=== PATIENT | female | born 1985 | race Caucasian/White ===

== ENCOUNTER 2016-08-31 17:03 | Emergency (ER) | payer OTHER ==
[~2016-08-31] VITALS: Ht 172.7 cm; Wt 122.7 kg
[2016-08-31 17:05] VITALS: TEMP 98.4
[2016-08-31] MEDS ORDERED: AZO-STANDARD95 MG PO (17:08)
[2016-08-31 18:05] LABS: BASO % 0.4 % (0.0-2.0); EOS # 0.3 (0.0-0.7); EOS % 3.5 % (0-4.0); GRAN % 64.1 % (42.2-75.2); HEMATOCRIT 40.7 % (37.0-47.0); HEMOGLOBIN 14.1 g/dl (12.5-16.0); LYMPH # 2.1 (1.2-3.4); LYMPH % 22.8 % (20.0-51.0); MEAN CELL VOLUME 86 fl (80.0-100.0); MEAN CORPUSCULAR HEMOGLOBIN 30 pg (27.0-31.0); MEAN CORPUSCULAR HGB CONC 35 g/dl (33.0-37.0); MEAN PLATELET VOLUME 9.8 fl (7.4-10.4); MONO # 0.8 (0.1-0.6); PLATELET COUNT 290 K/mm3 (130-400); RED BLOOD COUNT 4.74 M/mm3 (4.10-5.30); REDCELL DISTRIBUTION WIDTH-CV 13.2 % (11.5-14.5); WHITE BLOOD COUNT 9.4 K/mm3 (4.8-10.8)
[2016-08-31 19:38] VITALS: BP 161/83; PULSE 85
== END 2016-08-31 19:38 | disposition home or self-care (01) ==
LOC: COL.ER 17:03
PROVIDERS: Emergency Medicine
DX: S70.12XA Contusion of left thigh, initial encounter (principal); S70.312A Abrasion, left thigh, initial encounter; W55.11XA Bitten by horse, initial encounter; Y92.008 Other place in unspecified non-institutional (private) residence as the place of occurrence of the external cause

== ENCOUNTER → 2017-04-12 | Outpatient (CLI) | payer OTHER ==
[~2017-04-12] MED LIST: AZO-STANDARD95 MG PO
== END ==
LOC: COL.RAD 09:22
DX: N83.8 Other noninflammatory disorders of ovary, fallopian tube and broad ligament (principal); N97.9 Female infertility, unspecified

== ENCOUNTER 2018-05-17 10:06 | Inpatient (IN) | payer OTHER ==
[~2018-05-17] VITALS: Ht 172.7 cm; Wt 133.2 kg
[2018-05-17] VITALS (40 sets, daily range): BP systolic 109–179; BP diastolic 58–101; PULSE 60–96; TEMP 97.6–98.6
--- NOTE | 2018-05-17 11:40 | NUR ---
1140- Patient arrived to labor and delivery unit, after being called in after visit to medicine in [place], [place]. Patient seeing Dr. Pagan. Patient takes labatolol 100mg PO once daily for gestational hypertension. Patinent directly admitted for increased BP's and diagnosed with horseshoe kidney. 1144-EFM applied at this time. Dr. Padgett on unit, orders received to draw labs and CMP and UA.
[2018-05-17 12:17] LABS: COLLECTION METHOD CLEAN CATCH
[2018-05-17 12:23] LABS: MUCOUS Present /lpf; PH 7 (5-8); URINE APPEARANCE Hazy; URINE BACTERIA Rare /hpf; URINE BILIRUBIN Negative (NEGATIVE); URINE BLOOD Negative (NEGATIVE); URINE COLOR Yellow; URINE GLUCOSE Negative (NEGATIVE); URINE KETONE Negative (NEGATIVE); URINE LEUKOCYTE ESTERASE Negative (NEGATIVE); URINE NITRATE Negative (NEGATIVE); URINE PROTEIN(semi-quant) Negative (NEGATIVE); URINE RBC 0-2 /hpf; URINE UROBILINOGEN Negative (NEGATIVE); URINE WBC 0-2 /hpf
[2018-05-17 12:23] LABS: BASO % 0.3 % (0.0-2.0); EOS # 0.2 (0.0-0.7); EOS % 1.5 % (0-4.0); GRAN # 7.4 (1.4-6.5); GRAN % 70.9 % (42.2-75.2); HEMOGLOBIN 12.8 g/dl (12.5-16.0); LYMPH # 1.7 (1.2-3.4); LYMPH % 16.5 % (20.0-51.0); MEAN CELL VOLUME 87 fl (80.0-100.0); MEAN CORPUSCULAR HEMOGLOBIN 29 pg (27.0-31.0); MEAN CORPUSCULAR HGB CONC 34 g/dl (33.0-37.0); MEAN PLATELET VOLUME 9.9 fl (7.4-10.4); MONO % 9.8 % (1.7-9.3); PLATELET COUNT 269 K/mm3 (130-400); RED BLOOD COUNT 4.38 M/mm3 (4.10-5.30)
[2018-05-17 12:30] LABS: ALBUMIN 3.4 gm/dL (3.5-5.0); BILIRUBIN,TOTAL 0.2 mg/dL (0.0-1.0); CALCIUM 9.8 mg/dL (8.4-10.2); CREATININE, serum 0.54 mg/dL (0.52-1.25); POTASSIUM 4.2 mmol/L (3.4-5.0); TOTAL PROTEIN 6.7 gm/dL (6.4-8.2)
[2018-05-17] MEDS ORDERED: PRENATAL 191 TAB PO (12:41)
[2018-05-17] MEDS ORDERED: TRANDATE 100MG100 MG PO (12:41)
--- NOTE | 2018-05-17 15:30 | NUR ---
1530- External ultrasound being adjusted continuously. SVE 1-2/60/-2, attempt to place FSE wo trace heartones more eaisly. Unable to place FSE due to station of baby and little dialation. 1535- Patient placed right lateral with peanut ball inbetween knees. Ultrasound adjusted and tracing well at this time.
--- NOTE | 2018-05-17 18:30 | NUR ---
Report received from Andrew SIMPSON. Pt requesting epidural. JOHN Escalera in and pt aware. 1908: JOHN Escalera at bedside for epidural placement. Pt assisted to EOB and pulse ox applied and tracing well. Procedure and questions answered by Lali. 1921: Test dose administered by JOHN Escalera. See anesthesia records. 1925: Pt assisted to wedge left position per request. Plan of care and safety precautions explained to pt and who verbalize understanding. Call light within reach. Will continue to monitor. 1934: at bedside. SVE unchanged. Orders received to increase pitocin to 30mus/hr. See physican notification. Provider to stay on unit and reviewing FHR strip. 2019: FHR having recurrent late decelerations. Drake inserted without difficulties, pale yellow urine return noted. SVE 2-3/80/-2. Pt repositioned to wedge left position with peanut ball. Dr. Padgett at nurses station and reviewing FHR strip. Update on pt status given. See physican notification. to stay on unit and reviews FHR strip. 2114: at pts bedside and reviews FHR strip. SVE 3/80/-2 per provider. Orders received to keep increasing pitocin. Pitocin increased to 20mus/hr per orders and pt repostioned to [facility]. to remain on unit and reviewing FHR strip. 2154: Pt having recurrent late decelerations. Pt repositioned multiple times. reviews FHR strip and orders received to continue increasing pitocin. leaving unit at this time and states to call with any concerns. See physican notification. 2227: in insulation worker interior surface room and reviewing FHR strip. Provider comes to room and SVE unchanged. Potential explained to pt and and per provider and questions and concerns answered. LR bolus started and oxygen applied via oxymask at 10Ls. Orders received to increase pitocin at this time and pitocin increased to 24mus/hr. to remain on unit and reviews FHR strip. 2337: at bedside. SVE 4/90/-2. Plan of care explained to pt and per provider. Pt repositioned to wedge left position and oxygen remains on. Provider to remain on unit and reviews FHR strip. Call light within reach. Will continue to monitor closely.
[2018-05-18] VITALS (25 sets, daily range): BP systolic 113–155; BP diastolic 56–89; PULSE 57–99; TEMP 97.4–98.4
--- NOTE | 2018-05-18 01:27 | NUR ---
Pt starting to feel more pressure and states her contractions are increasing in pain as well. at bedside and pt pushes button. SVE /0 per provider. 0130: Pt laid flat on back for pericare and changing pads. FHR with recurrent late decelerations noted down to 80bmps. Pericare provided and pt repositioned to wedge right position and high fowlers. Plan of care explained to pt and who verbalize understanding. Call light within reach. Will continue to monitor closely.
--- NOTE | 2018-05-18 02:40 | NUR ---
at bedside. SVE 9/+2. Internal FHR monitor removed durring exam and external monitors reapplied with difficulty tracing FHR. RN remains at bedside adjusting monitors. 0245: SVE per provider C/+2. Instructions on pushing with contractions explained to pt per provider. 0250: remains at bedside and begins pushing with pt. Difficulty tracing FHR. FHR audible decelerations noted. Oxygen applied via oxymask at 10Ls. Pt continues pushing with . 0304: Pt moving vertex well. Pt assisted into footplates and nursery called into room for delivery. Pt continues pushing with . 0314: Spontaneous vaginal delivery of viable male infant by . Infant to mothers chest where dried and stimulated per provider and nursery RN. Cord clamped X2 and cut by FOB. Pitocin stopped per protocol. Care of infant assumed by CALVIN Lewis. 0317: Spontaneous delivery of intact placenta by . Pitocin restarted at 333mus/hr per protocol. Second degree perineal laceration repaired by . Fundal message performed and fundus firm, midline and bleeding minimal. Pericare provided, pads changed, ice pack applied and pt repositioned in bed. Plan of care and safety precautions explained to pt and who verbalize understanding. Call light within reach. See doctor dication and anesthesia records.
--- NOTE | 2018-05-18 05:45 | NUR ---
Pt able to hold legs up bilaterally for 5 seconds and ready to move rooms. Fundus firm, midline and bleeding minimal. Pt assisted to edge of bed. Epidural catheter removed without difficulties, no signs of inflammation or infection noted and bandaid applied. Pt assisted to bathroom, standby assist. Pt able to void. Pericare provided. Mesh panties, pad and ice pack applied. Pt ambulatory to room 214 and oriented to room. Call light within reach.
--- NOTE | 2018-05-18 18:37 | NUR ---
PT DECLINED BEDSIDE REPORT. REPORT RECEIVED FROM JASSON Landrum, OFF GOING RN. CARE TAKEN OVER BY THIS RN.
--- NOTE | 2018-05-18 19:14 | NUR ---
Pt visiting with family. D/c board updated. POC discussed. Bed in low and locked position. Call light and personal belongings in reach. Pain under control. Denies further needs.
[2018-05-19 03:00] VITALS: BP 115/64; PULSE 77; TEMP 97.8
[2018-05-19 07:50] VITALS: BP 147/88; PULSE 75; TEMP 98.2
[2018-05-19] MEDS ORDERED: IBU800 M1 PO (11:47)
== END 2018-05-19 15:30 | disposition home or self-care (01) | DRG 807 ==
LOC: OB 10:06 → LDR 11:29 → OB 05-18 06:23
PROVIDERS: Obstetrics & Gynecology; ADMIT Student in an Organized Health Care Education/Training Program
PROC: 3E033VJ Introduction of Other Hormone into Peripheral Vein, Percutaneous Approach (ICD-10-PCS; 2018-05-17)
PROC: 10907ZC Drainage of Amniotic Fluid, Therapeutic from Products of Conception, Via Natural or Artificial Opening (ICD-10-PCS; 2018-05-17)
PROC: 10E0XZZ Delivery of Products of Conception, External Approach (ICD-10-PCS; principal; 2018-05-18)
PROC: 0KQM0ZZ Repair Perineum Muscle, Open Approach (ICD-10-PCS; 2018-05-18)
DX: O13.4 Gestational [pregnancy-induced] hypertension without significant proteinuria, complicating childbirth (principal); Z37.0 Single live birth; Z3A.37 37 weeks gestation of pregnancy; O69.81X0 Labor and delivery complicated by cord around neck, without compression, not applicable or unspecified; O70.1 Second degree perineal laceration during delivery; O99.284 Endocrine, nutritional and metabolic diseases complicating childbirth; E28.2 Polycystic ovarian syndrome; O99.214 Obesity complicating childbirth; E03.9 Hypothyroidism, unspecified
CPT/HCPCS: J1200; J2590; J7120

== ENCOUNTER → 2018-05-20 | Outpatient (CLI) | payer OTHER ==
[~2018-05-20] MED LIST changes: +IBU800 M1 PO; +PRENATAL 191 TAB PO; +TRANDATE 100MG100 MG PO
--- NOTE | 2018-05-20 17:28 | NUR ---
Pt, Kandi Maza, presents for outpatient consult with 2 day old baby boy, Manuel Maza and her spouse Norbert Maza. Dr. Espinoza referred this family for consult after discharge from the hospital yesterday with concerns about jaundice and difficulty. Manuel had a repeat bilirubin test prior to this consult. Manuel was born on [birth year] by to this G1, P1 mother and BW was 6# 8.9oz (2975 gms). They report nursing with the nipple shield for inverted nipples which continues to be the mechanism for latching today. Pt reports Manuel has not eaten since 0400 today; they tried feeding before their trip into the hospital but he would not wake. He had several reported feedings in the noc, and over 9 feedings in the last 24 hours. QS voids and zero stools reported in the last 24 hours. Current weight is 5# 14.8oz (2688 gms). LC attempts to latch Manuel without shield, unable to latch as nipple inverts with attempt. Shield placed, able to keep Manuel on the shield, but his effort is minimal. Dr. Trinidad arrives and discusses bilirubin with pt and spouse, Manuel will be admitted for hyperbilirubinemia after this consult. Because of weight loss and bilirubin level pt agrees to supplement. SNS equipment provided, instruction/assistance also provided, spouse able to assist on second breast. Manuel is able to nurse with the shield and the SNS tubing, drawing the supplement on his own. 36ml supplement provided via SNS, equaling the total weight gain at this feeding with per and post feed weights. Pt provided a pump and instructed/assisted with pumping. Able to collect 18ml colostrum which will be saved and used at next feeding. POC: BF with SNS or bottle feed q 3 hours. Supplement 30-60ml each feeding. Pump 10-15 min bilaterally after each , saving collected amount for supplement. Pt and family escorted to room 302, report of feeding plan and weight at this consult provided to Pam SIMPSON, on pediatrics unit. Breastpump and supplies provided. Questions invited and answered, anticipate follow up tomorrow on pediatrics unit.
== END ==
LOC: LAC 09:24
DX: Z31.9 Encounter for procreative management, unspecified (principal); Z71.89 Other specified counseling